=== PATIENT | male | born 2000 | race Two or more races ===

== ENCOUNTER 2022-05-26 13:43 | Emergency (ER) | payer OTHER ==
[~2022-05-26] VITALS: Ht 182.9 cm; Wt 95.3 kg
--- NOTE | 2022-05-26 14:05 | NUR ---
BIBS C/O DIFFUSE ABDOMINAL PAIN, NAUSEA AND VOMITING SINCE SATURDAY. AMBULATORY, PLACED ON BED.
--- NOTE | 2022-05-26 14:50 | NUR ---
BLOOD DRAWN SENT TO LAB
[2022-05-26] MEDS ORDERED: ONDANSETRON HCL/PF 4 MG/2 ML VIAL ONE (14:51)
[2022-05-26 14:56] LABS: BASOPHILS % (AUTO) 0.5 % (0.0-2.0); EOSINOPHILS % (AUTO) 0.8 % (0.0-6.0); HEMATOCRIT 46 % (39-51); HEMOGLOBIN 15.6 g/dL (13.5-17.5); LYMPHOCYTES # (AUTO) 0.6 K/uL (0.8-4.8); LYMPHOCYTES % (AUTO) 11.7 % (20.0-44.0); MEAN CORPUSCULAR HGB CONC 34 g/dl (31.0-36.0); MEAN CORPUSCULAR VOLUME 87 fL (80-96); MONOCYTES # (AUTO) 0.6 K/uL (0.1-1.30); MONOCYTES % (AUTO) 12.2 % (2.0-12.0); NEUTROPHILS % (AUTO) 74.8 % (43.0-81.0); PLATELET COUNT (AUTO) 210 K/uL (150-450); RED BLOOD CELL COUNT(AUTO) 5.24 MIL/uL (4.5-6.0); WHITE BLOOD COUNT (AUTO) 5.3 K/uL (4.3-11.0)
[2022-05-26] MEDS ORDERED: ONDANSETRON HCL/PF 4 MG/2 ML VIAL IVP ONE (15:00)
[2022-05-26] MEDS ORDERED: IV NS 0.9% 1,000 ML BAG IV ONE (15:00)
--- NOTE | 2022-05-26 15:04 | NUR ---
SWAB FOR COVID19 AND RAPID INFLUENZA SNT TO LAB
[2022-05-26 15:11] LABS: BILIRUBIN,DIRECT 0.2 mg/dL (0.0-0.2); BILIRUBIN,TOTAL 0.6 mg/dL (0.2-1.0); CALCIUM, SERUM 9.2 mg/dL (8.5-10.1); CREATININE 1.2 mg/dL (0.6-1.3); POTASSIUM 3.2 mmol/L (3.5-5.1); TOTAL PROTEIN, SERUM 7.8 g/dL (6.4-8.2)
[2022-05-26] MEDS ORDERED: ONDA4TAB5 PO (16:52)
[2022-05-26] MEDS ORDERED: IBUP-1955 PO (16:52)
[2022-05-26] MEDS ORDERED: IBUPROFEN 600 MG TABLET ONE (16:55)
[2022-05-26] MEDS ORDERED: POTASSIUM CHLORIDE 10 MEQ TABLET.SA ONE (16:56)
[2022-05-26] MEDS ORDERED: POTASSIUM CHLORIDE 20 MEQ TAB.PRT.SR PO ONE ×2 (16:56→17:00)
[2022-05-26] MEDS ORDERED: IBUPROFEN 600 MG TABLET PO ONE (17:00)
--- NOTE | 2022-05-26 17:08 | NUR ---
IV removed. Catheter intact and site benign. Pressure and 4x4 applied to site. No bleeding noted.Patient discharged to home in stable condition. Written and verbal after care instructions given. Patient verbalizes understanding of instruction.
[2022-05-26 17:09] VITALS: BP 132/90
== END 2022-05-26 17:10 | disposition home or self-care (01) ==
LOC: ER 13:55
DX: J10.1 Influenza due to other identified influenza virus with other respiratory manifestations (principal); R11.2 Nausea with vomiting, unspecified; Z20.822 Contact with and (suspected) exposure to COVID-19
CPT/HCPCS: 99284; 96374; 71045; 96361; 87426; 87804; 85025; 80048; 83690; 80076; 36415; J2405; J7030; C9803

== ENCOUNTER 2022-10-29 14:00 | Emergency (ER) | payer OTHER ==
[~2022-10-29] VITALS: Ht 175.3 cm; Wt 95.3 kg
[~2022-10-29 14:00] MED LIST: IBUP-1955 PO; ONDA4TAB5 PO
--- NOTE | 2022-10-29 14:14 | NUR ---
NAUSEA AND VOMITING X 2 DAYS C/O ABDOMINAL PAIN; 5/10 IN SEVERITY
[2022-10-29] MEDS ORDERED: ONDANSETRON HCL/PF 4 MG/2 ML VIAL IVP ONE (15:00)
[2022-10-29] MEDS ORDERED: diphenhydrAMINE HCL 50 MG/ML VIAL IV ONE (15:00)
[2022-10-29] MEDS ORDERED: IV NS 0.9% 1,000 ML BAG IV ONE (15:00)
[2022-10-29] MEDS ORDERED: ONDANSETRON HCL/PF 4 MG/2 ML VIAL ONE (15:04)
[2022-10-29] MEDS ORDERED: diphenhydrAMINE HCL 50 MG/ML VIAL ONE (15:04)
--- NOTE | 2022-10-29 15:12 | NUR ---
IV ESTABLISHED R AC 20G. LABS DRAWN AND COLLECTED AT BEDSIDE
[2022-10-29 16:22] LABS: BASOPHILS % (AUTO) 0.8 % (0.0-2.0); EOSINOPHILS % (AUTO) 1.4 % (0.0-6.0); HEMATOCRIT 51 % (39-51); HEMOGLOBIN 16.9 g/dL (13.5-17.5); LYMPHOCYTES # (AUTO) 0.9 K/uL (0.8-4.8); LYMPHOCYTES % (AUTO) 25.5 % (20.0-44.0); MEAN CORPUSCULAR HGB CONC 34 g/dl (31.0-36.0); MEAN CORPUSCULAR VOLUME 87 fL (80-96); MONOCYTES # (AUTO) 0.3 K/uL (0.1-1.30); MONOCYTES % (AUTO) 9.6 % (2.0-12.0); NEUTROPHILS # (AUTO) 2.3 K/uL (1.8-8.9); NEUTROPHILS % (AUTO) 62.7 % (43.0-81.0); PLATELET COUNT (AUTO) 267 K/uL (150-450); RED BLOOD CELL COUNT(AUTO) 5.79 MIL/uL (4.5-6.0); WHITE BLOOD COUNT (AUTO) 3.6 K/uL (4.3-11.0)
[2022-10-29 16:56] LABS: CALCIUM, SERUM 10.2 mg/dL (8.5-10.1); CREATININE 1.2 mg/dL (0.6-1.3); POTASSIUM 3.4 mmol/L (3.5-5.1)
[2022-10-29 17:07] LABS: ALBUMIN 4.7 g/dL (3.4-5.0); BILIRUBIN,DIRECT 0.2 mg/dL (0.0-0.2); BILIRUBIN,TOTAL 0.9 mg/dL (0.2-1.0); TOTAL PROTEIN, SERUM 8.5 g/dL (6.4-8.2)
[2022-10-29 17:39] VITALS: BP 122/72
--- NOTE | 2022-10-29 17:39 | NUR ---
Patient discharged to home in stable condition, ambulating. Written and verbal after care instructions given. Patient verbalizes understanding of instruction.
== END 2022-10-29 17:40 | disposition home or self-care (01) ==
LOC: ER 14:03
DX: B34.9 Viral infection, unspecified (principal); T78.40XA Allergy, unspecified, initial encounter; Z79.899 Other long term (current) drug therapy; F17.200 Nicotine dependence, unspecified, uncomplicated; R11.2 Nausea with vomiting, unspecified
CPT/HCPCS: 99284; 96374; 96361; 96375; 85025; 80048; 83690; 80076; 36415; J1200; J2405; J7030

== ENCOUNTER 2024-11-11 23:27 | Emergency (ER) | payer OTHER ==
[~2024-11-11] VITALS: Ht 172.7 cm; Wt 72.6 kg
[2024-11-11 23:58] VITALS: BP 140/74; TEMP 98.4; O2SAT 99
[2024-11-12] MEDS ORDERED: RABIES VACCINE (PCEC)/PF 1 EA KIT IM ONE (00:33)
[2024-11-12] MEDS ORDERED: TDAP [DIPH/PERTUSSIS/TET] 0.5 ML VIAL IM ONE (00:34)
[2024-11-12] MEDS ORDERED: AMOX/CLAVULANATE 875 MG TABLET ONE (00:34)
[2024-11-12] MEDS ORDERED: AMOX-430 PO (00:38)
[2024-11-12] MEDS: AMOX/CLAVULANATE 875 MG TABLET PO ONE (00:39)
[2024-11-12] MEDS: TDAP [DIPH/PERTUSSIS/TET] 0.5 ML VIAL IM ONE (00:42)
[2024-11-12] MEDS: RABIES VACCINE (PCEC)/PF 1 EA KIT IM ONE (00:51)
[2024-11-12] MEDS: RABIES IMMUNE GLOBULIN/PF 150 UNIT/ML VIAL IM ONE (01:15)
== END 2024-11-12 01:23 | disposition home or self-care (01) ==
LOC: ER 23:32
DX: S60.511A Abrasion of right hand, initial encounter (principal); F12.90 Cannabis use, unspecified, uncomplicated; Z79.1 Long term (current) use of non-steroidal anti-inflammatories (NSAID); Z79.899 Other long term (current) drug therapy; W55.03XA Scratched by cat, initial encounter; Y93.89 Activity, other specified; Y92.89 Other specified places as the place of occurrence of the external cause; Y99.8 Other external cause status
CPT/HCPCS: 99284; 90375; 90675; 90472; 96372; 90471; 90715; A6403